=== PATIENT | female | born 2000 | race Caucasian/White ===

== ENCOUNTER 2021-07-10 21:46 | Emergency (ER) | payer BC, SELFPAY ==
[2021-07-10 21:50] VITALS: BP 136/65; PULSE 82; RESP 18; TEMP 36.6; O2SAT 99; BMI 21.7
[2021-07-10] MEDS: Ondansetron ODT 4 MG TAB.RAPDIS TRANSLINGU (22:50)
--- NOTE | 2021-07-10 23:34 | ED_ITS ---
HPI - Anxiety General Chief Complaint: Anxiety Stated Complaint: panic attack/anxiety Time Seen by Provider: 07/10/21 22:59 Source: patient Mode of arrival: ambulatory Limitations: no limitations History of Present Illness HPI narrative: Patient comes to emergency room complaining of a panic attack that lasted for over 3 hours. At this time, patient still feels anxious but is not having a panic attack. Patient also was feeling nauseous when she arrived to emergency room. Patient received Zofran sublingual, patient states she feels better but still slightly nauseous. Patient is visiting from [place]. Patient denies suicidal or homicidal ideation Related Data Previous Rx's Medication Instructions Recorded hydroxyzine HCl 25 mg tablet 25 mg PO BID PRN #14 tab 07/10/21 ondansetron 4 mg disintegrating 4 mg PO Q6H PRN #14 tab 07/10/21 tablet Allergies Allergy/AdvReac Type Severity Reaction Status Date / Time No Known Allergies Allergy Verified 07/10/21 23:33 Review of Systems Review of Systems: Constitutional : No Weight loss, No Fever, No Chills, No Night Sweats, No Fatigue, No Malaise ENT/Mouth : No Hearing loss, No Ear Pain, No Nasal Congestion, No Sinus Pain, No Hoarseness, No sore throat, No Rhinorrhea, No Swallowing Difficulty Eyes: No Eye Pain, No Swelling, No Redness, No Foreign Body, No Discharge, No Vision Changes Cardiovascular : No Chest Pain, No SOB, No Dyspnea on Exertion, No Orthopnea, No Edema, No Palpitations Respiratory : No Cough, No Sputum, No Wheezing, No Smoke Exposure, No Dyspnea Gastrointestinal : No Nausea, No Vomiting, No Diarrhea, No Constipation, No abdominal Pain, No Hematochezia, No Melena Genitourinary : no irregular bleeding, No Dysuria, No Urinary Frequency, No Hematuria, No Urinary Incontinence, No Urgency, No Flank Pain, No Urinary Flow Changes, No Hesitancy Musculoskeletal : No joint pain, No Myalgias, No Joint Swelling Skin : No Skin Lesions, No rash Neuro : No Weakness, No Numbness, No Paresthesias, No Loss of Consciousness, No Dizziness, No Headache Psych : Complaining of anxiety and a panic attack, No Depression, No SI/HI/AH/VH, No Social Issues, Heme/Lymph: No Bruising, No Bleeding,No Lymphadenopathy Endocrine : No Polyuria, No Polydipsia, No Temperature Intolerance [facility] Past Medical History Medical History Anxiety Social History Social History Advance Directives: No Advance Directives Information Provided: No Physical Exam Vital Signs: Vital Signs: Last Vital Signs Temp 98 F 07/10/21 21:50 Pulse 82 07/10/21 21:50 Resp 18 07/10/21 21:50 BP 136/65 07/10/21 21:50 Pulse Ox 99 07/10/21 21:50 BMI result Body Mass Index 21.7 Const: Other: Appearance: Alert. Oriented X3. No acute distress. Eyes: Pupils equal, round and reactive to light. ENT: Pharynx normal. Neck: Normal inspection. Neck supple. No lymph nodes noted. No crepitus CVS: Normal heart rate and rhythm. Pulses normal. Normal S1 and S2 Respiratory: No respiratory distress. Breath sounds normal. No Wheezing. No rales Abdomen: Soft and nontender. No rigidity. No distention. Skin: Skin warm and dry. Normal skin color. Normal skin turgor. Extremities: No lower extremity edema. No Lacerations. No Rash Neuro: Oriented X 3. No motor deficit. No sensory deficit. Moving all ext remities. No slurred speech. CN 2 through 12 grossly intact Psych: calm, cooperative, normal affect Course Course Course Narrative: Patient was given a dose of lorazepam 0.5 mg and 5 mg of prochlorperazine. Patient was given a printed prescription for Zofran. Patient states she has a psychiatrist back home. Patient takes Lexapro, states she has been compliant with her medications. Discharge Plan Discharge Clinical Impression: Panic attack Patient Disposition: Home, Self-Care Instructions: Panic Attack (ED) Additional Instructions: Please follow-up with your primary care physician tomorrow. If you have any worsening or new symptoms, please return to the emergency room or call 911 Prescriptions: New ondansetron 4 mg tablet,disintegrating 4 mg PO Q6H PRN (Reason: nausea and vomiting) Qty: 14 0RF hydroxyzine HCl 25 mg tablet 25 mg PO BID PRN (Reason: nausea and vomiting) Qty: 14 0RF Rx Instructions: P.r.n. anxiety
[2021-07-10] MEDS: LORazepam 0.5 MG TABLET PO (23:54)
== END 2021-07-11 00:02 | disposition home or self-care (01) ==
LOC: HO.ED 23:38
PROVIDERS: Emergency Provider Emergency Medicine
DX: F41.1 Generalized anxiety disorder (principal); F41.0 Panic disorder [episodic paroxysmal anxiety]; Z79.899 Other long term (current) drug therapy
CPT/HCPCS: 99283; 99284